=== PATIENT | male | born 1985 | race Caucasian/White ===

== ENCOUNTER 2016-12-20 16:08 | Emergency (ER) | payer OTHER | END 2016-12-20 19:09 | disposition left against medical advice (07) | LOC: ER 16:08 | DX: Z53.21 Procedure and treatment not carried out due to patient leaving prior to being seen by health care provider (principal) ==

== ENCOUNTER 2017-01-10 10:04 | Emergency (ER) | payer BC, OTHER | END 2017-01-10 12:34 | disposition home or self-care (01) | LOC: ER 10:04 | DX: N20.1 Calculus of ureter (principal); F17.210 Nicotine dependence, cigarettes, uncomplicated; Z87.442 Personal history of urinary calculi | CPT/HCPCS: 36415; 96361; 96374; 96375; J1885; J2765 ==